=== PATIENT | female | born 1965 | race Caucasian/White ===

== ENCOUNTER 2022-06-25 11:27 | Emergency (ER) | payer MEDICAID ==
[~2022-06-25] VITALS: Ht 157.5 cm; Wt 68.0 kg
--- NOTE | 2022-06-25 11:49 | NUR ---
BIB DAUGHTER C/O LT SHOULDER PAIN RADIATING TO LT ARM & CHEST X 3 DAYS DENIES TRAUMA, UNABLE TO MOVE SHOULDER. AMBULATORY, PLACED ON BED, AAOX4, IN PAIN 9/10 PS
[2022-06-25] MEDS ORDERED: KETOROLAC TROMETHAMINE 15 MG/ML VIAL ONE (12:54)
[2022-06-25] MEDS ORDERED: KETOROLAC TROMETHAMINE INJ 60 MG/2 ML VIAL IM ONE (13:00)
[2022-06-25] MEDS ORDERED: NAPR-1192 PO (13:24)
--- NOTE | 2022-06-25 13:27 | NUR ---
Patient discharged to home in stable condition. Written and verbal after care instructions given. Patient verbalizes understanding of instruction.
[2022-06-25 13:43] VITALS: BP 120/70
== END 2022-06-25 13:27 | disposition home or self-care (01) ==
LOC: ER 11:27
DX: M75.32 Calcific tendinitis of left shoulder (principal); M25.512 Pain in left shoulder; I10 Essential (primary) hypertension; Z79.1 Long term (current) use of non-steroidal anti-inflammatories (NSAID)
CPT/HCPCS: 99283; 96372; 73030; J1885